=== PATIENT | female | born 1935 | race Caucasian/White ===

== ENCOUNTER 2022-10-25 23:02 | Inpatient (IN) | payer OTHER, MEDICAID ==
[~2022-10-25] VITALS: Ht 152.4 cm; Wt 74.8 kg
[2022-10-25 23:18] VITALS: BP_SYST 119
[2022-10-26] MEDS ORDERED: NACL 0.9% 1,000 ML IV ONE (02:15)
[2022-10-26] MEDS ORDERED: MORPHINE 2 MG/ML INJ. SYRINGE IVP ONE (03:30)
[2022-10-26 03:40] LABS: ANION GAP 5 (5-15); CALCIUM 8.4 mg/dL (8.4-11.0); CHLORIDE 105 mmol/L (98-107); CREATININE 0.97 mg/dL (0.55-1.30); GLUCOSE 134 mg/dL (70-99); UREA NITROGEN, BLOOD 28 mg/dL (8-21)
[2022-10-26 03:47] LABS: ALANINE AMINOTRANSFERASE 27 U/L (12-78); ALBUMIN 2.8 g/dL (3.4-4.8); ASPARTATE AMINOTRANSFERASE 27 U/L (10-37); TOTAL BILIRUBIN 0.4 mg/dL (0.0-1.0)
[2022-10-26 03:53] LABS: BASOPHILS % (AUTO) 0.4 % (0.0-2.0); EOSINOPHILS # (AUTO) 0.1 K/uL (0.0-0.4); EOSINOPHILS % (AUTO) 1.5 % (0.0-4.0); HEMATOCRIT 38.8 % (36-48); LYMPHOCYTES # (AUTO) 2.2 K/uL (1.0-5.5); LYMPHOCYTES % (AUTO) 25.4 % (20.5-51.5); MEAN CORPUSCULAR HEMOGLOBIN 32 pg (27-31); MEAN CORPUSCULAR HGB CONC 34 % (32-36); MEAN CORPUSCULAR VOLUME 96 fL (79.0-98.0); MONOCYTES # (AUTO) 0.9 K/uL (0.0-1.0); MONOCYTES % (AUTO) 10.9 % (1.7-9.3); NEUTROPHILS # (AUTO) 5.3 K/uL (1.8-7.7); NEUTROPHILS % (AUTO) 61.8 % (40.0-70.0); PLATELET COUNT (AUTO) 227 K/uL (130-430); RED BLOOD CELL COUNT(AUTO) 4.03 MIL/uL (4.2-6.2); RED CELL DISTRIBUTION WIDTH 16.6 % (9.0-15.0); WHITE BLOOD COUNT (AUTO) 8.5 K/uL (4.8-10.8)
[2022-10-26] MEDS ORDERED: MOM PO (04:13)
[2022-10-26] MEDS ORDERED: TRAM50TA2 PO (04:13)
[2022-10-26] MEDS ORDERED: ALEN10TA25 PO (04:13)
[2022-10-26] MEDS ORDERED: INSU100V SUBCUT (04:13)
[2022-10-26] MEDS ORDERED: ACET325T53 PO (04:13)
[2022-10-26] MEDS ORDERED: LACT10SO7 PO (04:13)
[2022-10-26] MEDS ORDERED: BISA-79 PO (04:13)
[2022-10-26] MEDS ORDERED: POTA-197 PO (04:13)
[2022-10-26] MEDS ORDERED: FLEETMO RC (04:13)
[2022-10-26] MEDS ORDERED: ASCO500T20 PO (04:13)
[2022-10-26] MEDS ORDERED: LYR25 PO (04:13)
[2022-10-26] MEDS ORDERED: LACT10SO6 PO (04:13)
[2022-10-26] MEDS ORDERED: APIX5TAB PO (04:13)
[2022-10-26] MEDS ORDERED: XALEYE OP (04:13)
[2022-10-26] MEDS ORDERED: HYDR-3917 PO (04:13)
[2022-10-26] MEDS ORDERED: [UNRECOGNIZED DRUG - CODE] PO (04:13)
[2022-10-26] MEDS ORDERED: AMIO200T66 PO (04:13)
[2022-10-26] MEDS ORDERED: COLL100 PO (04:13)
[2022-10-26] MEDS ORDERED: FURO-149 PO (04:13)
[2022-10-26] MEDS ORDERED: AMIN30LI2 PO (04:13)
[2022-10-26] MEDS ORDERED: CYAN250010 PO (04:13)
[2022-10-26] MEDS ORDERED: PRO40 PO (04:13)
[2022-10-26 05:36] VITALS: BP_SYST 129
[2022-10-26 12:18] VITALS: BP_SYST 132
[2022-10-26] MEDS: MORPHINE 2 MG/ML INJ. SYRINGE IVP PRN ×2 (12:21→20:08)
[2022-10-26 16:24] VITALS: BP_SYST 127
[2022-10-26 20:03] VITALS: BP_SYST 101
[2022-10-27 00:10] VITALS: BP_SYST 112
[2022-10-27] MEDS: MORPHINE 2 MG/ML INJ. SYRINGE IVP PRN ×2 (01:37→18:14)
[2022-10-27 04:00] VITALS: BP_SYST 117
[2022-10-27] MEDS ORDERED: LEVOFLOXACIN 250 MG/D5W 50 ML IV SCH (05:15)
[2022-10-27 11:33] VITALS: BP_SYST 117
[2022-10-27 17:33] VITALS: BP_SYST 139
[2022-10-27 19:30] VITALS: BP_SYST 133
[2022-10-27] MEDS: LEVOFLOXACIN 250 MG/D5W 50 ML IV SCH (21:00)
[2022-10-28] VITALS: BP_SYST 146
[2022-10-28 07:01] LABS: BASOPHILS % (AUTO) 0.3 % (0.0-2.0); EOSINOPHILS # (AUTO) 0.1 K/uL (0.0-0.4); EOSINOPHILS % (AUTO) 0.8 % (0.0-4.0); HEMATOCRIT 39.7 % (36-48); HEMOGLOBIN 13.4 g/dL (12.0-16.0); LYMPHOCYTES # (AUTO) 1.2 K/uL (1.0-5.5); LYMPHOCYTES % (AUTO) 13.2 % (20.5-51.5); MEAN CORPUSCULAR HEMOGLOBIN 32 pg (27-31); MEAN CORPUSCULAR HGB CONC 34 % (32-36); MEAN CORPUSCULAR VOLUME 96 fL (79.0-98.0); MONOCYTES # (AUTO) 0.9 K/uL (0.0-1.0); MONOCYTES % (AUTO) 10.3 % (1.7-9.3); NEUTROPHILS # (AUTO) 6.7 K/uL (1.8-7.7); NEUTROPHILS % (AUTO) 75.4 % (40.0-70.0); PLATELET COUNT (AUTO) 207 K/uL (130-430); RED BLOOD CELL COUNT(AUTO) 4.14 MIL/uL (4.2-6.2); RED CELL DISTRIBUTION WIDTH 16.1 % (9.0-15.0); WHITE BLOOD COUNT (AUTO) 8.9 K/uL (4.8-10.8)
[2022-10-28 07:41] LABS: ALANINE AMINOTRANSFERASE 23 U/L (12-78); ALBUMIN 2.6 g/dL (3.4-4.8); ANION GAP 8 (5-15); ASPARTATE AMINOTRANSFERASE 23 U/L (10-37); CALCIUM 8.4 mg/dL (8.4-11.0); CHLORIDE 104 mmol/L (98-107); CREATININE 0.59 mg/dL (0.55-1.30); GLUCOSE 156 mg/dL (70-99); TOTAL BILIRUBIN 0.5 mg/dL (0.0-1.0); UREA NITROGEN, BLOOD 11 mg/dL (8-21)
[2022-10-28 08:00] VITALS: BP_SYST 125; BP_SYST 134
[2022-10-28 11:26] VITALS: BP_SYST 132
[2022-10-28 15:15] VITALS: BP_SYST 110
[2022-10-28 19:25] VITALS: BP_SYST 98
[2022-10-28] MEDS: LEVOFLOXACIN 250 MG/D5W 50 ML IV SCH (20:35)
[2022-10-29 02:59] VITALS: BP_SYST 99
[2022-10-29 08:07] VITALS: BP_SYST 136
[2022-10-29 12:00] VITALS: BP_SYST 102
[2022-10-29] MEDS: MORPHINE 2 MG/ML INJ. SYRINGE IVP PRN ×2 (14:20→21:49)
[2022-10-29 16:00] VITALS: BP_SYST 104
[2022-10-29 20:00] VITALS: BP_SYST 123
[2022-10-29] MEDS: LEVOFLOXACIN 250 MG/D5W 50 ML IV SCH (21:44)
[2022-10-29] MEDS ORDERED: LORazepam 2 MG/ML VIAL IVP PRN (23:15)
[2022-10-30] VITALS: BP_SYST 128
[2022-10-30] MEDS: MORPHINE 2 MG/ML INJ. SYRINGE IVP PRN (03:35)
[2022-10-30 11:26] VITALS: BP_SYST 100
[2022-10-30 17:24] VITALS: BP_SYST 103
[2022-10-30 17:30] VITALS: BP_SYST 103
[2022-10-30 20:00] VITALS: BP_SYST 135
[2022-10-30] MEDS: LEVOFLOXACIN 250 MG/D5W 50 ML IV SCH (23:08)
[2022-10-30 23:46] VITALS: BP_SYST 135
[2022-10-31] VITALS: BP_SYST 147
[2022-10-31] MEDS: MORPHINE 2 MG/ML INJ. SYRINGE IVP PRN ×2 (01:18→10:08)
[2022-10-31 02:38] VITALS: BP_SYST 132
[2022-10-31 03:15] VITALS: BP_SYST 132
[2022-10-31] MEDS ORDERED: MILK OF MAGNESIA 30 ML UDC PO PRN (10:00)
[2022-10-31 11:49] VITALS: BP_SYST 159
[2022-11-01] MEDS ORDERED: DOCUSATE SODIUM 100 MG/10 ML UDC PO SCH (09:00)
== END 2022-10-31 13:00 | DRG 542 ==
LOC: SED 23:02 → STU 10-26 04:13 → SMU 10-29 16:11
PROVIDERS: ADMIT Internal Medicine; ATTEND Internal Medicine
DX: M80.0AXA Age-related osteoporosis with current pathological fracture, other site, initial encounter for fracture (principal); J18.9 Pneumonia, unspecified organism; S22.000A Wedge compression fracture of unspecified thoracic vertebra, initial encounter for closed fracture; M79.605 Pain in left leg; M47.814 Spondylosis without myelopathy or radiculopathy, thoracic region; W18.39XA Other fall on same level, initial encounter; Z79.899 Other long term (current) drug therapy; Z20.822 Contact with and (suspected) exposure to COVID-19; Z88.0 Allergy status to penicillin; Z79.01 Long term (current) use of anticoagulants; Z79.4 Long term (current) use of insulin; Z79.1 Long term (current) use of non-steroidal anti-inflammatories (NSAID); Y93.89 Activity, other specified; Y92.89 Other specified places as the place of occurrence of the external cause; Y99.8 Other external cause status
CPT/HCPCS: 36415; 70450-TC; 71045; 71250-TC; 73552; 76376; 80053; 83605; 84484; 85025; 87040; 87081; 93005; 96361; 96365; 97163-GP; 97530-GP; 99285; G0378; J1956; J2060; J2270

== ENCOUNTER 2023-07-03 14:08 | Inpatient (IN) | payer OTHER, MEDICAID ==
[~2023-07-03] VITALS: Ht 162.6 cm; Wt 68.4 kg
[~2023-07-03 14:08] MED LIST: ACET325T53 PO; ALEN10TA25 PO; AMIN30LI2 PO; AMIO200T66 PO; APIX5TAB PO; ASCO500T20 PO; BISA-79 PO; COLL100 PO; CYAN250010 PO; FLEETMO RC; FURO-149 PO; HYDR-3917 PO; INSU100V SUBCUT; LACT10SO6 PO; LACT10SO7 PO; LYR25 PO; MOM PO; POTA-197 PO; PRO40 PO; TRAM50TA2 PO; XALEYE OP; [UNRECOGNIZED DRUG - CODE] PO
[2023-07-03 14:18] VITALS: BP_SYST 124; PULSE 56; RESP 18; TEMP 98.3; O2SAT 94
[2023-07-03 15:23] LABS: BASOPHILS % (AUTO) 0.4 % (0.0-2.0); EOSINOPHILS # (AUTO) 0.1 K/uL (0.0-0.4); EOSINOPHILS % (AUTO) 2.3 % (0.0-4.0); HEMATOCRIT 37.7 % (36-48); HEMOGLOBIN 12.4 g/dL (12.0-16.0); LYMPHOCYTES # (AUTO) 1.4 K/uL (1.0-5.5); LYMPHOCYTES % (AUTO) 24.8 % (20.5-51.5); MEAN CORPUSCULAR HEMOGLOBIN 31 pg (27-31); MEAN CORPUSCULAR HGB CONC 33 % (32-36); MEAN CORPUSCULAR VOLUME 95 fL (79.0-98.0); MONOCYTES % (AUTO) 16.6 % (1.7-9.3); NEUTROPHILS # (AUTO) 3.3 K/uL (1.8-7.7); NEUTROPHILS % (AUTO) 55.9 % (40.0-70.0); PLATELET COUNT (AUTO) 200 K/uL (130-430); RED BLOOD CELL COUNT(AUTO) 3.96 MIL/uL (4.2-6.2); RED CELL DISTRIBUTION WIDTH 16.1 % (9.0-15.0); WHITE BLOOD COUNT (AUTO) 5.9 K/uL (4.8-10.8)
[2023-07-03 15:36] LABS: ANION GAP 3 (5-15); CALCIUM 8.8 mg/dL (8.4-11.0); CARBON DIOXIDE 29 mmol/L (23-29); CHLORIDE 104 mmol/L (98-107); CREATININE 0.73 mg/dL (0.55-1.30); GLUCOSE 116 mg/dL (74-106); POTASSIUM 4.4 mmol/L (3.5-5.1); SODIUM SERUM 136 mmol/L (136-145); UREA NITROGEN, BLOOD 24 mg/dL (8-21)
[2023-07-03 15:44] LABS: CREATINE KINASE, TOTAL 77 U/L (26-192)
[2023-07-03 16:03] LABS: INR 1.1 (0.8-1.2); PROTHROMBIN TIME 11.6 SECS (9.5-12.5)
[2023-07-03 16:56] LABS: BILIRUBIN,URINE NEGATIVE (NEGATIVE); BLOOD, URINE NEGATIVE (NEGATIVE); CLARITY/URINE CLEAR (CLEAR); COLOR,URINE YELLOW (YELLOW); GLUCOSE,URINE NEGATIVE (NEGATIVE); KETONES,URINE NEGATIVE (NEGATIVE); LEUKOCYTE ESTERASE ,URINE 2+ (NEGATIVE); NITRITE, URINE NEGATIVE (NEGATIVE); PROTEIN URINE NEGATIVE (NEGATIVE)
[2023-07-03 17:32] LABS: BACTERIA,URINE FEW /HPF (None Seen); RBC,URINE >100 /HPF (0-3); WBC,URINE >100 /HPF (0-3)
[2023-07-03] MEDS ORDERED: FUROSEMIDE 40 MG/4 ML VIAL IVP ONE (17:45)
[2023-07-03] MEDS ORDERED: NACL 0.9% 1,000 ML IV ONE (17:45)
[2023-07-03] MEDS ORDERED: METO-290 PO (17:58)
[2023-07-03] MEDS ORDERED: cefTRIAXone 1 GM in D5W 50 ML IV ONE (18:00)
[2023-07-03] MEDS ORDERED: LATA1DRO (18:07)
[2023-07-03] MEDS ORDERED: LEVO150T PO (18:07)
[2023-07-03] MEDS ORDERED: AMIN30LI2 PO (18:07)
[2023-07-03] MEDS ORDERED: ASCO500T20 PO (18:07)
[2023-07-03] MEDS ORDERED: PROP10DR2 EACH EYE (18:07)
[2023-07-03] MEDS ORDERED: cefTRIAXone 1 GM VIAL ONE (18:12)
[2023-07-04] MEDS: LORazepam 2 MG/ML VIAL IVP PRN ×3 (00:25→22:19)
[2023-07-04] MEDS ORDERED: ACETAMINOPHEN 325 MG TABLET ONE (08:56)
[2023-07-04] MEDS: ACETAMINOPHEN 325 MG TABLET PO PRN (08:56)
[2023-07-04] MEDS ORDERED: NS 500 ML IV ONE (10:00)
[2023-07-04] MEDS: FUROSEMIDE 40 MG/4 ML VIAL IVP SCH (10:45)
[2023-07-04] MEDS ORDERED: FUROSEMIDE 40 MG/4 ML VIAL ONE (11:14)
[2023-07-04] MEDS ORDERED: PANTOPRAZOLE SODIUM 40 MG TAB PO ONE (11:53)
[2023-07-04] MEDS: PANTOPRAZOLE SODIUM 40 MG TAB PO SCH (11:54)
[2023-07-04] MEDS ORDERED: cefTRIAXone 1 GM IVPB PREMIX 50 ML IV ONE (17:14)
[2023-07-04] MEDS: cefTRIAXone 1 GM IVPB PREMIX 50 ML IV SCH (17:17)
[2023-07-04] MEDS: PEG 400/HYPROMELLOSE/GLYCERIN 15 ML DROPS EACH EYE SCH ×2 (17:22→17:29)
[2023-07-04] MEDS ORDERED: THEOPHYLLINE ANHYDROUS 300 MG TAB.SR.12H PO ONE (18:30)
[2023-07-04 19:50] VITALS: BP_SYST 123; PULSE 65; RESP 18; TEMP 99
[2023-07-04] MEDS: LATANOPROST 2.5 ML DROPS (XALATAN) OP SCH (21:00)
[2023-07-04] MEDS: APIXABAN 2.5 MG TABLET PO SCH (22:08)
[2023-07-05] VITALS (7 sets, daily range): BP systolic 121–161; PULSE 67–76; RESP 16–18; TEMP 97–97.6; O2SAT 95–99
[2023-07-05] MEDS: ACETAMINOPHEN 325 MG TABLET PO PRN (00:37)
[2023-07-05] MEDS: LEVOTHYROXINE SODIUM 0.15 MG TABLET PO SCH (06:15)
[2023-07-05 06:46] LABS: BASOPHILS % (AUTO) 0.3 % (0.0-2.0); EOSINOPHILS # (AUTO) 0.1 K/uL (0.0-0.4); EOSINOPHILS % (AUTO) 1.3 % (0.0-4.0); HEMATOCRIT 43.2 % (36-48); HEMOGLOBIN 14.3 g/dL (12.0-16.0); LYMPHOCYTES # (AUTO) 2.2 K/uL (1.0-5.5); LYMPHOCYTES % (AUTO) 27.8 % (20.5-51.5); MEAN CORPUSCULAR HEMOGLOBIN 32 pg (27-31); MEAN CORPUSCULAR HGB CONC 33 % (32-36); MEAN CORPUSCULAR VOLUME 95 fL (79.0-98.0); MONOCYTES # (AUTO) 1.2 K/uL (0.0-1.0); MONOCYTES % (AUTO) 14.7 % (1.7-9.3); NEUTROPHILS # (AUTO) 4.4 K/uL (1.8-7.7); NEUTROPHILS % (AUTO) 55.9 % (40.0-70.0); PLATELET COUNT (AUTO) 222 K/uL (130-430); RED BLOOD CELL COUNT(AUTO) 4.54 MIL/uL (4.2-6.2); RED CELL DISTRIBUTION WIDTH 16.4 % (9.0-15.0); WHITE BLOOD COUNT (AUTO) 7.9 K/uL (4.8-10.8)
[2023-07-05 07:01] LABS: ANION GAP 8 (5-15); CALCIUM 9.1 mg/dL (8.4-11.0); CARBON DIOXIDE 28 mmol/L (23-29); CHLORIDE 103 mmol/L (98-107); CREATININE 0.67 mg/dL (0.55-1.30); GLUCOSE 164 mg/dL (74-106); POTASSIUM 3.6 mmol/L (3.5-5.1); SODIUM SERUM 139 mmol/L (136-145); UREA NITROGEN, BLOOD 12 mg/dL (8-21)
[2023-07-05 07:13] LABS: ALANINE AMINOTRANSFERASE 21 U/L (12-78); ALBUMIN 2.8 g/dL (3.4-4.8); ASPARTATE AMINOTRANSFERASE 23 U/L (10-37); CHOLESTEROL 186 mg/dL (<200); HDL CHOLESTEROL 68 mg/dL (>55); THYROID STIMULATING HORMONE 2.08 uIu/mL (0.34-4.82); TOTAL BILIRUBIN 0.5 mg/dL (0.0-1.0); TOTAL PROTEIN, SERUM 7.4 g/dL (6.4-8.3); TRIGLYCERIDES 95 mg/dL (30-150)
[2023-07-05] MEDS: THEOPHYLLINE ANHYDROUS 300 MG TAB.SR.12H PO SCH ×2 (08:31→21:00)
[2023-07-05] MEDS: FUROSEMIDE 40 MG/4 ML VIAL IVP SCH (08:32)
[2023-07-05] MEDS: PANTOPRAZOLE SODIUM 40 MG TAB PO SCH (08:32)
[2023-07-05] MEDS: APIXABAN 2.5 MG TABLET PO SCH ×2 (08:32→21:49)
[2023-07-05] MEDS: PEG 400/HYPROMELLOSE/GLYCERIN 15 ML DROPS EACH EYE SCH ×4 (08:33→21:46)
[2023-07-05] MEDS: cefTRIAXone 1 GM IVPB PREMIX 50 ML IV SCH (17:16)
[2023-07-05] MEDS: LATANOPROST 2.5 ML DROPS (XALATAN) OP SCH (21:00)
[2023-07-05] MEDS ORDERED: traMADol HCL HCL 50 MG TABLET (ULTRAM) PO PRN (21:15)
[2023-07-05] MEDS ORDERED: PREGABALIN 25 MG CAPSULE (LYRICA) PO SCH (21:15)
[2023-07-05] MEDS ORDERED: PREGABALIN 25 MG CAPSULE (LYRICA) PO ONE (21:30)
[2023-07-05] MEDS ORDERED: PREGABALIN 75 MG CAPSULE (LYRICA) PO ONE (21:30)
[2023-07-05] MEDS: LORazepam 2 MG/ML VIAL IVP PRN (21:47)
[2023-07-06 01:14] VITALS: BP_SYST 91; PULSE 70; RESP 18; TEMP 97.3; O2SAT 99
[2023-07-06 06:06] LABS: ANION GAP 6 (5-15); CARBON DIOXIDE 30 mmol/L (23-29); CHLORIDE 102 mmol/L (98-107); CREATININE 0.74 mg/dL (0.55-1.30); GLUCOSE 180 mg/dL (74-106); POTASSIUM 3.5 mmol/L (3.5-5.1); SODIUM SERUM 138 mmol/L (136-145); UREA NITROGEN, BLOOD 23 mg/dL (8-21)
[2023-07-06 06:09] LABS: BASOPHILS % (AUTO) 0.2 % (0.0-2.0); EOSINOPHILS % (AUTO) 0.4 % (0.0-4.0); HEMATOCRIT 41.9 % (36-48); HEMOGLOBIN 13.9 g/dL (12.0-16.0); LYMPHOCYTES # (AUTO) 1.3 K/uL (1.0-5.5); LYMPHOCYTES % (AUTO) 14.7 % (20.5-51.5); MEAN CORPUSCULAR HEMOGLOBIN 32 pg (27-31); MEAN CORPUSCULAR HGB CONC 33 % (32-36); MEAN CORPUSCULAR VOLUME 95 fL (79.0-98.0); MONOCYTES # (AUTO) 1.1 K/uL (0.0-1.0); MONOCYTES % (AUTO) 12.5 % (1.7-9.3); NEUTROPHILS # (AUTO) 6.4 K/uL (1.8-7.7); NEUTROPHILS % (AUTO) 72.2 % (40.0-70.0); PLATELET COUNT (AUTO) 233 K/uL (130-430); RED BLOOD CELL COUNT(AUTO) 4.41 MIL/uL (4.2-6.2); RED CELL DISTRIBUTION WIDTH 15.9 % (9.0-15.0); WHITE BLOOD COUNT (AUTO) 8.9 K/uL (4.8-10.8)
[2023-07-06] MEDS: LEVOTHYROXINE SODIUM 0.15 MG TABLET PO SCH (07:04)
[2023-07-06 08:00] VITALS: O2SAT 99
[2023-07-06 08:10] VITALS: BP_SYST 113; PULSE 63; RESP 18; TEMP 97.5; O2SAT 95
[2023-07-06] MEDS: PEG 400/HYPROMELLOSE/GLYCERIN 15 ML DROPS EACH EYE SCH ×2 (08:40→12:36)
[2023-07-06] MEDS: PANTOPRAZOLE SODIUM 40 MG TAB PO SCH (08:44)
[2023-07-06] MEDS: APIXABAN 2.5 MG TABLET PO SCH (08:51)
[2023-07-06] MEDS: THEOPHYLLINE ANHYDROUS 300 MG TAB.SR.12H PO SCH (09:00)
[2023-07-06] MEDS ORDERED: PREGABALIN 25 MG CAPSULE (LYRICA) PO SCH (09:00)
[2023-07-06] MEDS ORDERED: PREGABALIN 75 MG CAPSULE (LYRICA) PO SCH (09:00)
[2023-07-06] MEDS: FUROSEMIDE 40 MG/4 ML VIAL IVP SCH (09:01)
[2023-07-06 11:05] VITALS: BP_SYST 94; PULSE 67; RESP 16; TEMP 96.1; O2SAT 93
[2023-07-06] MEDS ORDERED: MERO1PIG IV (11:17)
[2023-07-06 11:51] VITALS: BP_SYST 95; PULSE 69; RESP 18; TEMP 96.5; O2SAT 94
== END 2023-07-06 13:10 | DRG 193 ==
LOC: SED 14:08 → STU 17:38
PROVIDERS: ADMIT Internal Medicine; ATTEND Internal Medicine
DX: J18.9 Pneumonia, unspecified organism (principal); I50.33 Acute on chronic diastolic (congestive) heart failure; N39.0 Urinary tract infection, site not specified; I11.0 Hypertensive heart disease with heart failure; G89.4 Chronic pain syndrome; E03.9 Hypothyroidism, unspecified; M81.0 Age-related osteoporosis without current pathological fracture; E78.5 Hyperlipidemia, unspecified; I48.0 Paroxysmal atrial fibrillation; D64.9 Anemia, unspecified; Z20.822 Contact with and (suspected) exposure to COVID-19; Z96.653 Presence of artificial knee joint, bilateral; K21.9 Gastro-esophageal reflux disease without esophagitis; E11.9 Type 2 diabetes mellitus without complications; Z74.01 Bed confinement status; Z79.01 Long term (current) use of anticoagulants; Z79.4 Long term (current) use of insulin; Z79.83 Long term (current) use of bisphosphonates; Z86.718 Personal history of other venous thrombosis and embolism; Z79.1 Long term (current) use of non-steroidal anti-inflammatories (NSAID); Z87.81 Personal history of (healed) traumatic fracture; Z87.891 Personal history of nicotine dependence; Z95.828 Presence of other vascular implants and grafts; Z88.0 Allergy status to penicillin; Z79.899 Other long term (current) drug therapy
CPT/HCPCS: 36415; 71045; 80048; 80053; 80061; 81000; 81001; 81015; 82550; 82962; 83605; 83735; 83880; 84443; 84484; 85025; 85379; 85610-TC; 85730-TC; 87040; 87081; 87086; 93005; 93306; 96365; 99285; G0378; J0696; J1940; J2060